=== PATIENT | male | born 1990 | race Caucasian/White ===

== ENCOUNTER 2017-09-22 16:46 | Emergency (ER) | payer BC ==
[~2017-09-22] VITALS: Ht 180.3 cm; Wt 68.7 kg
[~2017-09-22 16:46] MED LIST: MOBIC7.5 MG PO
[2017-09-22] MEDS ORDERED: MINIPRESS1 MG PO (16:52)
[2017-09-22] MEDS ORDERED: ZIPRASIDONE HCL60 MG PO (16:52)
[2017-09-22 18:06] LABS: HEMATOCRIT 41.7 % (38.0-50.0); HEMOGLOBIN 14.3 G/DL (12.5-16.6); MCH 30.7 PG (29.0-34.0); MCHC 34.3 G/DL (30.0-36.0); MCV 89.5 FL (86-99); PLATELET COUNT 204 K/uL (156-360); RBC DIS.WIDTH-CV 12.9 % (11.8-14.6); RBC DIS.WIDTH-SD 42.6 % (39-53); RED BLOOD COUNT 4.66 M/uL (4.00-5.50); WHITE BLOOD COUNT 10.4 K/uL (4.1-10.2)
[2017-09-22 18:15] LABS: CHLORIDE 106 mEq/L (99-109); POTASSIUM 3.6 mEq/L (3.7-5.4); SODIUM 139 mEq/L (136-147)
[2017-09-22 18:17] LABS: GLUCOSE 149 mg/dL (70-99)
[2017-09-22 18:20] LABS: CREATININE 0.8 mg/dL (0.6-1.3); GFR ESTIMATE (CALCULATED) > 59 mL/min/ (58.99-99999)
[2017-09-22 18:21] LABS: UREA NITROGEN (BUN) 15 mg/dL (9-23)
[2017-09-22] MEDS ORDERED: ATARAX,VISTARIL25 MG PO (19:57)
[2017-09-22 21:06] VITALS: BP 119/68
== END 2017-09-22 21:06 | disposition home or self-care (01) ==
LOC: EME 16:46
PROVIDERS: Emergency Medicine
DX: F31.9 Bipolar disorder, unspecified (principal); F41.9 Anxiety disorder, unspecified; F32.9 Major depressive disorder, single episode, unspecified; Z87.891 Personal history of nicotine dependence
CPT/HCPCS: 80048; 81003; 85027; 93005; 99281; 99284; J2060; J7030